=== PATIENT | male | born 1945 | race Caucasian/White ===

== ENCOUNTER 2021-07-05 10:06 | Emergency (ER) | payer MEDICARE, SELFPAY ==
--- NOTE | ~2021-07-05 | XR_ITS ---
XR hand RT min 3V 07/05/2021 10:49 Indication: Right hand pain after fall. First metacarpal phalangeal joint pain. Procedure: 3 views right hand Comparison: No prior studies for comparison. Findings: There is mild-moderate polyarticular osteoarthritis with loose bodies adjacent to the first carpal metacarpal and interphalangeal joints. No acute fracture is identified. No focal soft tissue abnormality. No foreign bodies. Impression: 1: No acute fracture. Reviewed, dictated and finalized at location A. Impression: 1: No acute fracture.
[2021-07-05 10:24] VITALS: BP 134/49; PULSE 78; RESP 20; TEMP 36.5; O2SAT 97
--- NOTE | 2021-07-05 11:07 | ED.UPPEXIN ---
HPI - Extremity Injury (Upper) General Chief Complaint: Extremity Injury, Upper Stated Complaint: Fall Injury/Right Wrist Time Seen by Provider: 07/05/21 11:00 Source: patient, RN notes reviewed and old records reviewed Mode of arrival: ambulatory Limitations: no limitations History of Present Illness HPI narrative: 75 [facility] complaints of sustaining a fall in his home which occurred on Sunday. Patient states that he lost his balance and he fell backward and he tried to break his fall using his right hand with injury to the base of his right thumb . Patient has greenish yellow colored bruising to the base of his right thumb region, he states that his pain radiates up to his right wrist. Patient has full mobility of his hand and all finger but with some increased discomfort, circulation and sensation are intact.Patient denies any dizziness prior to fall and no LOC at time of fall.Patient does make comment that he has had some issues with his left eye for quite some time recommend follow up with eye doctor. MD complaint: injury to: right and hand Onset (ago): day(s) (4) Treatments prior to arrival: other (Tylenol) Related Data Home Medications Medication Instructions Recorded Confirmed amlodipine 10 mg tablet 10 mg PO DAILY 07/05/21 07/05/21 atorvastatin 80 mg tablet 80 mg PO DAILY 07/05/21 07/05/21 clopidogrel 75 mg tablet 75 mg PO DAILY 07/05/21 07/05/21 cyclobenzaprine 10 mg tablet 10 mg PO DIRECTED 07/05/21 07/05/21 furosemide 20 mg tablet 20 mg PO DAILY 07/05/21 07/05/21 insulin glargine 100 unit/mL 100 ml subcut DIRECTED 07/05/21 07/05/21 subcutaneous solution (Lantus U-100 Insulin) isosorbide mononitrate 30 mg 30 mg PO DAILY 07/05/21 07/05/21 tablet,extended release 24 hr levothyroxine 300 mcg tablet 300 mcg PO DAILY 07/05/21 07/05/21 metformin 1,000 mg tablet 1,000 mg PO DAILY 07/05/21 07/05/21 sertraline 50 mg tablet 50 mg PO DAILY 07/05/21 07/05/21 silver sulfadiazine 1 % topical 1 applic topical DAILY 07/05/21 07/05/21 cream (SSD) Allergies Allergy/AdvReac Type Severity Reaction Status Date / Time No Known Allergies Allergy Verified 07/05/21 10:39 Review of Systems Review of Systems: CONSTITUTIONAL: Denies fever, chills, or sweats. EYES: Denies visual changes, redness, or discharge. ENT: Denies rhinorrhea, congestion, sore throat, or otalgia. CARDIOVASCULAR: Denies chest pain, palpitations, or edema. RESPIRATORY: Denies cough or dyspnea. GASTROINTESTINAL: Denies abdominal pain, nausea, vomiting, or diarrhea. GENITOURINARY: Denies dysuria or hematuria. SKIN: Denies rash or itching. MUSCULOSKELETAL: Denies back pain,positive pain to the base of his right thumb extending to his wrist or myalgia. NEUROLOGIC: Denies headache, numbness, or weakness. PSYCHIATRIC: Denies anxiety or depression. PMFSH Past Medical History Medical History (Updated 07/06/21 @ 08:17 by Sydney Espinosa NP) Hypercholesterolemia Hypertension Surgical History Surgical History (Updated 07/06/21 @ 08:18 by Sydney Espinosa NP) Hx of heart artery stent Social History Social History (Updated 07/06/21 @ 08:19 by Sydney Espinosa NP) Smoking status: Former smoker Additional smoking assessment comments: quit over 25 years ago Alcohol intake: unknown Substance use: never Living arrangements: with family Gender identity (if verbalized by the patient): Male Comments At time of signature, agree with nursing past medical, surgical, social and family history. There is no relevant family history pertinent to the presenting complaint Exam Narrative: GENERAL: Well-appearing, well-nourished,obese and in no acute distress. HEAD: Normocephalic, atraumatic. EYES: PERRLA and EOMI. ENT: Nares clear, no rhinorrhea or epistaxis. Mucous membranes moist.TM's normal with good light reflex, throat pink with no lesions or exudates or tonsil swelling. NECK: Supple.no lymphadenopathy
== END 2021-07-05 11:28 | disposition home or self-care (01) ==
PROVIDERS: Emergency Provider Registered Nurse; PCP Family Medicine
DX: S60.221A Contusion of right hand, initial encounter (principal); W19.XXXA Unspecified fall, initial encounter; E78.00 Pure hypercholesterolemia, unspecified; I10 Essential (primary) hypertension; Z95.5 Presence of coronary angioplasty implant and graft; Z87.891 Personal history of nicotine dependence
CPT/HCPCS: 73130; 99213; G0463

== ENCOUNTER 2022-02-08 12:48 | Emergency (ER) | payer MEDICARE, SELFPAY ==
[2022-02-08 12:55] VITALS: BP 146/75; PULSE 74; RESP 18; TEMP 35.9; O2SAT 98
--- NOTE | 2022-02-08 13:12 | ED.SKABFB ---
HPI - Skin/Abscess/Foreign Bdy General Chief complaint: Skin/Abscess/Foreign Body Stated complaint: Pain in both Breasts Time Seen by Provider: 02/08/22 13:10 Source: patient and RN notes reviewed History of Present Illness HPI narrative: Patient 76-year-old male who presents to the Urgent Care with complaints of breast/ nipple tenderness and soreness. Patient states that he has attempted to see his doctor and is unable to get into the office. Denies any recent change of diet. Denies any rash or itching. Denies any history of breast issues. Denies any chest pain. No other acute complaints. Patient aware of the plan of care. Some parts of this dictation were generated by voice recognition software and may contain typographical and/or grammatical inaccuracies. Related Data Home Medications Medication Instructions Recorded Confirmed amlodipine 10 mg tablet 10 mg PO DAILY 07/05/21 02/08/22 atorvastatin 80 mg tablet 80 mg PO DAILY 07/05/21 02/08/22 clopidogrel 75 mg tablet 75 mg PO DAILY 07/05/21 02/08/22 furosemide 20 mg tablet 40 mg PO DAILY 07/05/21 02/08/22 insulin glargine 100 unit/mL 70 unit subcut HS 07/05/21 02/08/22 subcutaneous solution (Lantus U-100 Insulin) isosorbide mononitrate 30 mg 30 mg PO DAILY 07/05/21 02/08/22 tablet,extended release 24 hr levothyroxine 300 mcg tablet 300 mcg PO DAILY 07/05/21 02/08/22 metformin 1,000 mg tablet 1,000 mg PO BID 07/05/21 02/08/22 sertraline 50 mg tablet 50 mg PO DAILY 07/05/21 02/08/22 nitroglycerin 0.3 mg sublingual 0.3 mg sublingual Q5-15M PRN Chest 02/08/22 02/08/22 tablet Pain Allergies Allergy/AdvReac Type Severity Reaction Status Date / Time No Known Allergies Allergy Verified 02/08/22 13:04 Review of Systems Review of Systems: CONSTITUTIONAL: Denies fever, chills, or sweats. EYES: Denies visual changes, redness, or discharge. ENT: Denies rhinorrhea, congestion, sore throat, or otalgia. CARDIOVASCULAR: Denies chest pain, palpitations, or edema. RESPIRATORY: Denies cough or dyspnea. GASTROINTESTINAL: Denies abdominal pain, nausea, vomiting, or diarrhea. GENITOURINARY: Denies dysuria or hematuria. SKIN: Reports of pain and tenderness to the nipple/breasts MUSCULOSKELETAL: Denies back pain, joint pain, or myalgia. NEUROLOGIC: Denies headache, numbness, or weakness. All other systems reviewed are negative, except as documented in HPI. [facility] Past Medical History Medical History (Updated 02/08/22 @ 13:45 by ANTONIO Yousif) Hypercholesterolemia Hypertension Surgical History Surgical History (Updated 07/06/21 @ 08:18 by Sydney Espinosa NP) Hx of heart artery stent Social History Social History (Updated 07/06/21 @ 08:19 by Sydney Espinosa NP) Smoking status: Former smoker Additional smoking assessment comments: quit over 25 years ago Alcohol intake: unknown Substance use: never Gender identity (if verbalized by the patient): Male Comments At the time of my signature, I reviewed and agree with the nursing past medical, surgical, social, and family history. There is no relevant family history pertinent to the patient complaint. Exam Narrative: GENERAL: This is a well-nourished, well-developed patient, in no apparent distress. HEAD: normocephalic, atraumatic. EYES: PERRL. Sclera clear/white. Vision is grossly intact. EARS: External ears normal NOSE: External nose normal with no obvious nasal discharge, nares without redness, no rhinorrhea. THROAT: Mucous membranes moist NECK: Neck supple, non-tender without lymphadenopathy, masses or thyromegaly. CARDIOVASCULAR: Regular rate and rhythm RESPIRATORY: clear without wheezes, diminished right lower lobe; visibly dyspneic at rest SKIN: warm, intact with no suspicious lesions or rash, good texture and turgor. NEURO: awake, alert, and oriented to person, place and time. There were no obvious focal neurologic abnormalities. EXTREMITIES: No clubbing, cyanosis, or ed
--- NOTE | 2022-02-08 13:33 | ECG_ITS ---
Measurements Intervals Oral Rate: 63 P: 25 PA: 244 QRS: 0 QRSD: 76 T: 35 QT: 402 QTc: 414 Interpretive Statements SINUS RHYTHM WITH FIRST DEGREE AV BLOCK POSSIBLE LEFT ATRIAL ENLARGEMENT BORDERLINE ST ABNORMALITY- HIGH LATERAL LEADS BASELINE ARTIFACT- I, II, AVR, AVL, AVF, V1 ABNORMAL ECG NO PREVIOUS ECG AVAILABLE FOR COMPARISON Electronically Signed On 02-08-2022 14:28:44 [employer] by Herminio Silverman D.O.
== END 2022-02-08 13:41 | disposition left against medical advice (07) ==
PROVIDERS: Emergency Provider Nurse Practitioner Family; PCP Family Medicine
DX: N64.4 Mastodynia (principal); R94.31 Abnormal electrocardiogram [ECG] [EKG]; Z87.891 Personal history of nicotine dependence; E78.00 Pure hypercholesterolemia, unspecified; I10 Essential (primary) hypertension; Z95.5 Presence of coronary angioplasty implant and graft
CPT/HCPCS: 93005; 99211; G0463